=== PATIENT | female | born 1950 | race Caucasian/White ===

== ENCOUNTER → 2017-02-05 | Outpatient (CLI) | payer OTHER | LOC: FIMAGING 14:16 | PROVIDERS: ATTEND Internal Medicine | DX: I48.2 Chronic atrial fibrillation (principal) ==

== ENCOUNTER → 2017-03-07 | Outpatient (CLI) | payer OTHER | LOC: BMCIMAGING 08:12 | PROVIDERS: ATTEND Internal Medicine Endocrinology, Diabetes & Metabolism | DX: E05.90 Thyrotoxicosis, unspecified without thyrotoxic crisis or storm (principal) | CPT/HCPCS: 76536-PO ==

== ENCOUNTER 2017-03-12 01:32 | Emergency (ER) | payer OTHER ==
[2017-03-12 01:43] VITALS: RESP 18
--- NOTE | 2017-03-12 01:44 | EDPHY ---
H & P Stated Complaint: epigastric to back pain and may be in afib HPI/ROS: Chief Complaint: Chest pain HPI: 67-year-old woman with a history of chronic atrial fibrillation has been having episodes of chest pain is for the last week. They are described as a dull pain in her upper abdomen migrating to her chest. Make him on the last for only a few seconds and then go away. Initially they are occurring about every 30 minutes however the last day or 2 they have been coming on every 10 minutes or so. She has not have any associated shortness of breath. No fevers or chills. Also states she has been having some occasional pain in the sides of her chest and breast and going into her back. Her back pain is similar to muscular pain that she gets after lifting and does state that she has been lifting her 30 lb grandson recently. No cough. No nausea or vomiting. She recently had thorough cardiac evaluation including stress test echocardiogram done by her coat fitter. There is a plan for the follow-up with clarifier operator helper in consultation for possible ablation for atrial fibrillation. She has been taking her Eliquis. Pain is not brought on by exertion. She has not had any calf pain or tenderness. It is not pleuritic. It only lasts for a few seconds before goes away. There are no aggravating or alleviating factors. At worst it is a 2 on 10. She is currently without pain. ROS: 10 point Review of Systems is negative except as noted in the HPI. PMH: Atrial fibrillation Social History: No smoking, no alcohol, no recreational drug use Family History: non-contributory Physical Exam: Gen: Awake, Alert, No Distress HEENT: Nose: no rhinorrhea Eyes: PERRLA, EOMI Mouth: Moist mucosa Neck: Supple, no JVD Chest: nontender, lungs clear to auscultation Heart: S1, S2 normal, no murmur Abd: Soft, non-tender, no guarding Back: no CVA tenderness, no midline tenderness Ext: no edema, non-tender Skin: no rash Neuro: CN II-XII intact, Sensation grossly intact, Strength 5/5 in bilateral upper and lower extremities - Personal History Current Tetanus/Diphtheria Vaccine: Unsure Current Tetanus Diphtheria and Acellular Pertussis (TDAP): Unsure Tetanus Vaccine Date: 2006 - Medical/Surgical History Hx Asthma: Yes Hx Chronic Respiratory Disease: No Hx Diabetes: No Hx Cardiac Disease: Yes Hx Renal Disease: No Hx Cirrhosis: No Hx Alcoholism: No Hx HIV/AIDS: No Hx Splenectomy or Spleen Trauma: No Other PMH: A-FIB, CARDIOVERSION X 4, PE, DVT, HYPERLIPIDEMIA, ASTHMA, SEASONAL ALLERGIES, LTK, LUMBAR DISCECTOMY - Social History Smoking Status: Never smoked Constitutional: Initial Vital Signs Temperature (C) 36.4 C 03/12/17 01:37 Heart Rate 85 03/12/17 01:37 Respiratory Rate 18 03/12/17 01:37 Blood Pressure 168/78 H 03/12/17 01:37 O2 Sat (%) 96 03/12/17 01:37 O2 Delivery Mode Room Air O2 (L/minute) 2 Allergies/Adverse Reactions: iodine [Iodine] Allergy (Severe, Verified 10/05/14 13:49) Hives Penicillins Allergy (Severe, Verified 12/27/09 23:36) Rash cephalexin [Cephalexin] Allergy (Intermediate, Verified 02/26/12 14:19) Itching DOGS Allergy (Intermediate, Uncoded 02/13/12 14:07) SNEEZY DAIRY Adverse Reaction (Intermediate, Uncoded 12/29/09 05:40) Abdominal Cramping Home Medications: Medication Instructions Recorded Multivitamins [Multivitamin (*)] 1 each PO DAILY 02/16/12 [place]-3 Fatty Acids [Fish Oil 1000 1,000 mg PO DAILY 02/16/12 mg (*)] Metoprolol Succinate Xr [Toprol Xl 50 mg PO DAILY 09/30/14 50 mg (*)] Eliquis 03/12/17 Medical Decision Making - Diagnostics EKG Interpretation: ECG time 0148, atrial fibrillation with a rate of 90, normal axis, no acute ST changes. Imaging Results: Right upper quadrant ultrasound is negative per Dr. Baker. Imaging: Discussed imaging studies w/ cripple worker Radiologist ED Course/Re-evaluation: 67-year-old woman presenting with episodes of atypical chest pain lasting just a few seconds which has been increasing in frequency for the last week. She is in atrial fibrillation but this is chronic for her. She is of had recent extensive cardiac workup including stress testing and echocardiogram which have been unremarkable. Her ECG does not show any acute ischemic changes at this time. Troponin is undetectable. She is otherwise well-appearing. I do not see evidence of acute coronary syndrome at this time. Plan will be to discharge. She has an appoint with Cardiology this week for further evaluation for atrial fibrillation she will follow up regarding this pain as well. - Data Points Laboratory Results: Laboratory Results 03/12/17 01:50 03/12/17 01:50 03/12/17 03/12/17 03/12/17 01:50 01:50 01:50 WBC 8.85 10^3/uL 10^3/uL (3.80-9.50) RBC 4.66 10^6/uL 10^6/uL (4.18-5.33) Hgb 14.9 g/dL g/dL (12.6-16.3) Hct 44.8 % % (38.0-47.0) MCV 96.1 fL fL (81.5-99.8) MCH 32.0 pg pg (27.9-34.1) MCHC 33.3 g/dL g/dL (32.4-36.7) RDW 13.2 % % (11.5-15.2) Plt Count 282 10^3/uL 10^3/uL (150-400) MPV 9.8 fL fL (8.7-11.7) Neut % (Auto) 53.0 % % (39.3-74.2) Lymph % (Auto) 36.6 % % (15.0-45.0) [place] % (Auto) 8.0 % % (4.5-13.0) Eos % (Auto) 1.1 % % (0.6-7.6) Baso % (Auto) 1.0 % % (0.3-1.7) Nucleat RBC Rel Count 0.0 % % (0.0-0.2) Absolute Neuts (auto) 4.68 10^3/uL 10^3/uL (1.70-6.50) Absolute Lymphs (auto) 3.24 10^3/uL H 10^3/uL (1.00-3.00) Absolute Monos (auto) 0.71 10^3/uL 10^3/uL (0.30-0.80) Absolute Eos (auto) 0.10 10^3/uL 10^3/uL (0.03-0.40) Absolute Basos (auto) 0.09 10^3/uL 10^3/uL (0.02-0.10) Absolute Nucleated RBC 0.00 10^3/uL 10^3/uL (0-0.01) Immature Gran % 0.3 % % (0.0-1.1) Immature Gran # 0.03 10^3/uL 10^3/uL (0.00-0.10) Sodium 143 mEq/L mEq/L (134-144) Potassium 4.6 mEq/L mEq/L (3.5-5.2) Chloride 107 mEq/L mEq/L (97-110) Carbon Dioxide 23 mEq/l mEq/l (22-31) Anion Gap 13 mEq/L mEq/L (8-16) BUN 19 mg/dL mg/dL (7-23) Creatinine 0.9 mg/dL mg/dL (0.6-1.0) Estimated GFR > 60 Glucose 103 mg/dL H mg/dL (70-100) Calcium 9.9 mg/dL mg/dL (8.5-10.4) Total Bilirubin 1.9 mg/dL H mg/dL (0.1-1.4) Conjugated Bilirubin 0.4 mg/dL mg/dL (0.0-0.5) Unconjugated Bilirubin 1.5 mg/dL H mg/dL (0.0-1.1) AST 22 IU/L IU/L (14-46) ALT 28 IU/L IU/L (9-52) Alkaline Phosphatase 112 IU/L IU/L (38-126) Troponin I < 0.012 ng/mL ng/mL (0-0.034) Total Protein 7.4 g/dL g/dL (6.3-8.2) Albumin 4.3 g/dL g/dL (3.5-5.0) Lipase 85.0 IU/L IU/L (23-300) Departure - Departure Disposition: Home, Routine, Self-Care Clinical Impression: Atypical chest pain, Atrial fibrillation Condition: Good Instructions: Chest Pain (ED) Additional Instructions: Follow up with your coat fitter and primary care physician this week. Return to the emergency depart for increasing pain, shortness of breath, fevers , chills, fainting, or any other concerns. Referrals: Chanel Diaz MD [Primary Care Provider] - As per Instructions
--- NOTE | 2017-03-12 01:51 | CPEKG ---
Heart Rate: 90 RR Interval: 667 QRSD Interval: 88 QT Interval: 384 QTC Interval: 470 QRS [place]: 6 T Wave [place]: 18 EKG Severity - ABNORMAL ECG - EKG Impression: ATRIAL FIBRILLATION, V-RATE 70-107 Electronically Signed By: Samir Salvador 13-Mar-2017 02:47:43
[2017-03-12 02:10] LABS: % IMMATURE GRANULYOCYTES 0.3 % (0.0-1.1); ABSOLUTE IMMATURE GRANULOCYTES 0.03 10^3/uL (0.00-0.10); ADD DIFF? NO; ADD MORPH? NO; ADD SCAN? NO; ATYPICAL LYMPHOCYTE FLAG 20 (0-99); FRAGMENT RBC FLAG 0 (0-99); HEMATOCRIT 44.8 % (38.0-47.0); HEMOGLOBIN 14.9 g/dL (12.6-16.3); LEFT SHIFT FLG 0 (0-99); LIPEMIA HEMOLYSIS FLAG 80 (0-99); MEAN CELL HEMOGLOBIN CONCENTR. 33.3 g/dL (32.4-36.7); MEAN CELL VOLUME 96.1 fL (81.5-99.8); MEAN PLATELET VOLUME 9.8 fL (8.7-11.7); PLATELET CLUMPS FLAG 10 (0-99); PLATELET COUNT 282 10^3/uL (150-400); RED BLOOD CELL COUNT 4.66 10^6/uL (4.18-5.33); RED CELL DISTRIBUTION WIDTH 13.2 % (11.5-15.2)
[2017-03-12 02:18] LABS: ANION GAP 13 mEq/L (8-16); CALCIUM 9.9 mg/dL (8.5-10.4); CARBON DIOXIDE 23 mEq/l (22-31); CHLORIDE 107 mEq/L (97-110); CREATININE 0.9 mg/dL (0.6-1.0); GLOMERULAR FILTRATION RATE > 60; GLUCOSE 103 mg/dL (70-100); POTASSIUM 4.6 mEq/L (3.5-5.2); SODIUM 143 mEq/L (134-144)
[2017-03-12 02:30] LABS: TROPONIN I < 0.012 ng/mL (0-0.034)
[2017-03-12 02:50] LABS: ALBUMIN 4.3 g/dL (3.5-5.0); BILIRUBIN,TOTAL 1.9 mg/dL (0.1-1.4); BILIRUBIN-CONJUGATED 0.4 mg/dL (0.0-0.5); BILIRUBIN-UNCONJUGATED 1.5 mg/dL (0.0-1.1); TOTAL PROTEIN 7.4 g/dL (6.3-8.2)
[2017-03-12] MEDS ORDERED: HYDROCOD/APAP 5/325 PREPACK#6 BTL TAKEHOME ONE ×2 (03:43→03:50)
[2017-03-12 03:52] VITALS: BP 142/80; PULSE 68; TEMP 96.8; O2SAT 98
== END 2017-03-12 03:51 | disposition home or self-care (01) ==
DX: I48.91 Unspecified atrial fibrillation (principal); J45.909 Unspecified asthma, uncomplicated

== ENCOUNTER 2017-05-04 07:31 | Day surgery (SDC) | payer OTHER ==
[2017-05-04] MEDS ORDERED: NS 1,000 ML IV ONE (07:37)
[2017-05-04] MEDS ORDERED: ASPIRIN EC 325 MG TAB PO ONE (07:37)
[2017-05-04] MEDS ORDERED: FAMOTIDINE 20 MG/NACL 50 ML IV ONE (07:37)
[2017-05-04] MEDS ORDERED: DIAZEPAM 5 MG TAB PO ONE (07:37)
[2017-05-04] MEDS ORDERED: methylPREDNISolone SOD SUCC 125 MG/2 ML VIAL IVP ONE (07:37)
--- NOTE | 2017-05-04 08:08 | CPEKG ---
Heart Rate: 106 RR Interval: 566 QRSD Interval: 90 QT Interval: 332 QTC Interval: 441 QRS [place]: 1 T Wave [place]: 42 EKG Severity - ABNORMAL ECG - EKG Impression: ATRIAL FIBRILLATION, V-RATE 89-125 Electronically Signed By: Justino Shafer 04-May-2017 16:49:30
[2017-05-04 08:21] LABS: % IMMATURE GRANULYOCYTES 0.5 % (0.0-1.1); ABSOLUTE IMMATURE GRANULOCYTES 0.04 10^3/uL (0.00-0.10); ADD DIFF? NO; ADD MORPH? NO; ADD SCAN? NO; ATYPICAL LYMPHOCYTE FLAG 0 (0-99); FRAGMENT RBC FLAG 0 (0-99); HEMATOCRIT 45.5 % (38.0-47.0); HEMOGLOBIN 15.2 g/dL (12.6-16.3); LEFT SHIFT FLG 0 (0-99); LIPEMIA HEMOLYSIS FLAG 80 (0-99); MEAN CELL HEMOGLOBIN 31.9 pg (27.9-34.1); MEAN CELL HEMOGLOBIN CONCENTR. 33.4 g/dL (32.4-36.7); MEAN CELL VOLUME 95.6 fL (81.5-99.8); MEAN PLATELET VOLUME 9.7 fL (8.7-11.7); PLATELET CLUMPS FLAG 10 (0-99); PLATELET COUNT 256 10^3/uL (150-400); RED BLOOD CELL COUNT 4.76 10^6/uL (4.18-5.33); RED CELL DISTRIBUTION WIDTH 13.3 % (11.5-15.2)
[2017-05-04 08:31] LABS: PROTIME(PATIENT) 13.1 SEC (12.0-15.0)
[2017-05-04 08:47] LABS: ANION GAP 12 mEq/L (8-16); CALCIUM 10.2 mg/dL (8.5-10.4); CARBON DIOXIDE 22 mEq/l (22-31); CHLORIDE 104 mEq/L (97-110); CHOLESTEROL 204 mg/dL (140-220); CHOLESTEROL/HDL RATIO 2.19 RATIO (1.00-4.44); CREATININE 0.9 mg/dL (0.6-1.0); GLOMERULAR FILTRATION RATE > 60; GLUCOSE 167 mg/dL (70-100); HIGH DENSITY LIPOPROTEIN 93 mg/dL (40-85); LOW DENSITY LIPOPROTEIN 93 mg/dL (80-100); MAGNESIUM 1.8 mg/dL (1.6-2.3); NON-HIGH DENSITY LIPOPROTEIN 111 mg/dL (90-129); POTASSIUM 4.8 mEq/L (3.5-5.2); SODIUM 138 mEq/L (134-144); TRIGLYCERIDE 92 mg/dL (35-135); VERY LOW DENSITY LIPOPROTEINS 18 mg/dL (8-25)
[2017-05-04] MEDS ORDERED: LIDOCAINE 1% 300 MG/30 ML SDV ONE (08:47)
[2017-05-04] MEDS ORDERED: fentaNYL 100 MCG/2 ML INJ ONE (08:48)
[2017-05-04] MEDS ORDERED: IOPAMIDOL (ISOVUE-370) 150 ML BTL IV ONE (08:48)
[2017-05-04] MEDS ORDERED: VERAPAMIL 5 MG/2 ML VIAL ONE (08:48)
[2017-05-04] MEDS ORDERED: MIDAZOLAM 2 MG/2 ML VIAL ONE ×2 (08:48→10:00)
[2017-05-04] MEDS ORDERED: HEPARIN 10,000 UNIT/10 ML MDV ONE (08:48)
--- NOTE | 2017-05-04 18:27 | CPIP ---
[f rep st] INVASIVE CARDIAC PROCEDURE PROCEDURE PERFORMED: 1. Selective coronary angiography. 2. Left heart catheterization. 3. Left ventriculogram. 4. TR Band arteriotomy repair, this was a right radial approach. COMPLICATIONS: None. INDICATIONS/APPROPRIATE USE CRITERIA: The patient was found to have a low-grade but positive calciu m score followed by a nuclear stress test which was abnormal indicating ischemia to the anterior wal l versus breast attenuation. PROCEDURE IN DETAIL: After informed consent was obtained, n.p.o. status was confirmed. The region of the right wrist was cleaned, prepped, and draped in sterile fashion. A plethysmography and trace assisted Nitin test was performed documenting dual arterial supply to the right index finger. A 5- [place] sheath was placed with modified Seldinger technique. The patient underwent the previously me ntioned diagnostic procedures with use of JR4 and JR4 and JL3.5 [place] catheters as well as a 5-[facility] pigtail catheter. Standard wire exchange technique was utilized for all catheter exchanges. The right coronary artery is approximately 2.5 mm in size proximally and is nondominant giving rise to an RV branch and acute marginal branch before terminating in the AV groove. The left main coronary lumen is approximately 8 mm in size, and it is very short. The patient almos t has a common ostium arising from the left main of the left circumflex and LAD. The left circumfle x is a dominant and very large vessel approximately 4.25 mm in size proximally giving rise to 2 impo rtant obtuse marginal branches, a posterolateral ventricular branch as well as the posterior descend ing making this a left dominant system. There is CARISSA-3 flow throughout and no evidence of obstruct tariq disease or plaque within the left circumflex. The LAD arises immediately from very near the lef t coronary cusp and was selectively injected separately from the left circumflex with a JL3.5 cathet er. The LAD is diffusely diseased proximally with multiple luminal irregularities consistent with u nderlying atherosclerosis. At the level of the LAD diagonal bifurcation, both vessels are approxima tely 2.5 mm in size with a 50% obstruction in each at the bifurcation. This is a complex lesion. T here was evidence of dye streaming which is consistent with abnormal flow characteristics; however, these lesions when best identified in a magnified CAMBODIAN caudal view, did not appear to reveal evidence of flow-limiting obstruction. A 50% angiographic lesion distal to the LAD bifurcation is also note d and best seen in the more cranial projections. Again, there is CARISSA-3 flow without evidence of di ssection or thrombus of this vessel. The patient underwent left heart catheterization demonstrating elevated left ventricular end-diastolic pressure measured at 21 mmHg. The patient underwent left v entriculogramin the BRYAN projection demonstrating preserved left ventricular systolic function, eject ion fraction 65% without segmental wall motion abnormalities. With pressurized injection, the patie nt developed ectopy, and there was noted significant mitral regurgitation during the pressurized inj ection. This was likely to be catheter induced as the patient has had a recent echocardiogram which did not reveal significant mitral regurgitation. Of note is that when the regurgitation was noted, the left atrium was fairly large in volume which may be consistent with patient's history of persis tent atrial fibrillation. The visualized portion of the thoracic aorta reveals 3 sinuses of Valsalv a which is most consistent with a trileaflet aortic valve. The proximal portion of the ascending th oracic aorta does not reveal any obvious aneurysm or dissection. There was no evidence of aortic st enosis upon pullback across the aortic valve. Incidentally noted during the patient's cardiac catheterization procedure was a calcified nodule wit hin the reason region of the thyroid gland, and on injection with the left ventriculogram, it was no kiley that small blood vessels were growing to this calcified nodule which was slightly to the left of midline. There did appear to be small vessels that were going to this calcified mass in the region of the thyroid gland which also seemed to opacify it which would be consistent with neovascularizat ion to this calcified mass. The patient was noted to have significant hypertension with blood pressures documented to be as high as 200/98, while sedated in the labor relations officer. This, of course, may be related in part to her recent st eroid regimen which was given for her history of iodine allergy. FINAL IMPRESSION: Moderate but nonflow limiting coronary disease confined to the left anterior desc ending and left anterior descending diagonal bifurcation in a complex lesion which did not appear to limit blood flow to the heart muscle angiographically. The patient should be treated for atheroscl erosis to achieve an LDL cholesterol of less than 100 and a non-HDL cholesterol of less than 100 as well. She should adopt a routine moderate cardiovascular exercise schedule once cleared to do so af ter the wrist arteriotomy site has healed completely in 7-10 days. Careful attention to her diet to avoid excess calories as well as saturated fats which are solid at room temperature, trans fats, or simple sugars in her diet may be reasonable. Probably the best diet for patients with coronary dis ease is the so-called Mediterranean diet which is prominent in fruits, vegetables, and plant based s ources of oils such as tree nuts and olive oil. The patient has significant systemic hypertension at rest and with sedation which may indicate that she has intermittent significant hypertension which may be in part situational. I think it would be reasonable to consider placing the patient on an FAM inhibitor or ARB based medical regimen as thos e are thought to improve vascular health. Hyperglycemia was noted on today's fasting sample with a blood sugar above 126 mg/dL at 1:56. The p atient states that she had a recent physical where her blood sugar was not found to be in the range for diabetes. This may, of course, be induced by her recent oral corticosteroid regimen; however, i t is something that should be monitored by her primary care physician. The patient has a calcified nodule at the base of her neck which is most likely in the thyroid. Thi s nodule is irregular in its borders, heavily calcified, and appears to have neovascularization andrews g to it from branch vessels in the thyrocervical trunk. I have discussed these findings with __ who felt that if they had not been biopsied before, they should be. I discussed the findin gs of the angiography with Dr. Friedman at the [facility] who relates that they have been biopsied in 2014. She would like to contact the patient on Sunday and consider repeat biopsy of tho se lesions. The patient is at risk for an acute coronary syndrome given her age, family history, hypertension, d yslipidemia, and hyperglycemia which is easily provoked with oral corticosteroids. If she experienc es chest discomfort, pressure, tightness, nausea, vomiting, or other clinical symptoms of concern es pecially if they occur with exertion or are new onset, she should be considered for emergency evalua tion here at the hospital. The patient understands her discharge instructions which include to limi t her activity, no strenuous activity for the next 7-10 days until her arteriotomy site has healed c ompletely, and I have asked that she call Dr. Friedman's office as well to follow up on this thyroid n odule issue. I think it would be reasonable for her to see her primary care physician as well at [facility], discuss further management and treatment of her dyslipidemia and coronary artery disease. Copy requested to: Dr. Friedman /[id number]/MODL
== END 2017-05-04 17:34 | disposition home or self-care (01) ==
LOC: FCATH 07:31
PROVIDERS: ATTEND Internal Medicine Cardiovascular Disease
PROC: B2111ZZ Fluoroscopy of Multiple Coronary Arteries using Low Osmolar Contrast (ICD-10-PCS; principal; 2017-05-04)
PROC: B2151ZZ Fluoroscopy of Left Heart using Low Osmolar Contrast (ICD-10-PCS; principal; 2017-05-04)
PROC: 4A023N7 Measurement of Cardiac Sampling and Pressure, Left Heart, Percutaneous Approach (ICD-10-PCS; principal; 2017-05-04)
DX: I48.1 Persistent atrial fibrillation (principal); E78.4 Other hyperlipidemia; E05.90 Thyrotoxicosis, unspecified without thyrotoxic crisis or storm; Z86.718 Personal history of other venous thrombosis and embolism; Z82.49 Family history of ischemic heart disease and other diseases of the circulatory system; Z91.041 Radiographic dye allergy status; Z79.01 Long term (current) use of anticoagulants
CPT/HCPCS: J1644; J2250; J3010; Q9967

== ENCOUNTER → 2017-05-24 | Outpatient (CLI) | payer OTHER ==
[~2017-05-24] MED LIST: LIDOCAINE 1% 300 MG/30 ML SDV ONE
== END ==
LOC: FIMAGING 12:07
PROVIDERS: ATTEND Internal Medicine Endocrinology, Diabetes & Metabolism
PROC: 0G9K3ZZ Drainage of Thyroid Gland, Percutaneous Approach (ICD-10-PCS; principal; 2017-05-24)
DX: E04.2 Nontoxic multinodular goiter (principal)

== ENCOUNTER → 2017-06-04 | Outpatient (CLI) | payer OTHER | LOC: FIMAGING 10:01 | PROVIDERS: ATTEND Internal Medicine | DX: Z12.31 Encounter for screening mammogram for malignant neoplasm of breast (principal); Z13.820 Encounter for screening for osteoporosis; M85.80 Other specified disorders of bone density and structure, unspecified site; E07.9 Disorder of thyroid, unspecified; Z87.81 Personal history of (healed) traumatic fracture; Z96.653 Presence of artificial knee joint, bilateral; Z79.899 Other long term (current) drug therapy | CPT/HCPCS: G0202 ==

== ENCOUNTER 2017-06-25 08:59 | Inpatient (IN) | payer OTHER ==
[2017-06-25] MEDS ORDERED: ACETAMINOPHEN 325 MG TAB PO PRN (10:30)
[2017-06-25] MEDS ORDERED: ONDANSETRON DISINTEGRATING 4 MG TAB PO PRN (10:30)
--- NOTE | 2017-06-25 10:38 | PDCARPN ---
Cardiology Progress Note Chief Complaint: Atrial fibrillation Assessment/Plan: Assessment/Plan: Johana is a 67 y/o F with a history of hyperthyroidism and persistent atrial fibrillation. She failed prior CV but was hyperthyroid at the time. She was started on Methimazole greater than 3 months ago and presents today for Sotalol loading and possible CV. She will begin Sotalol 120mg BID if her CrCl is >60. She will continue Eliquis 5mg BID with a CHADS VASc score of 2. If she remains in a.fib she will have a CV sun. 06/25/17 10:34 Subjective: Pt can feel that she is in atrial fibrillation but has no specific complaints. Objective: Intake/Output (24 Hrs) 06/24/17 06/25/17 06/26/17 05:59 05:59 05:59 Other: Weight 103.2 kg - Physical Exam Constitutional: WDWN Cardiovascular: no murmurs, irregularly irregular Peripheral Pulses: 2+: dorsalis-pedis (R), dorsalis-pedis (L) Respiratory: clear to auscultate bilat Skin: no edema Neurologic: AAOx3 ICD10 Worksheet Patient Problems: Problems Problem Status Onset Arthritis of knee, right Acute
[2017-06-25 11:21] LABS: % IMMATURE GRANULYOCYTES 0.3 % (0.0-1.1); ABSOLUTE IMMATURE GRANULOCYTES 0.02 10^3/uL (0.00-0.10); ADD DIFF? NO; ADD MORPH? NO; ADD SCAN? NO; ATYPICAL LYMPHOCYTE FLAG 0 (0-99); FRAGMENT RBC FLAG 0 (0-99); HEMATOCRIT 42.5 % (38.0-47.0); HEMOGLOBIN 14.1 g/dL (12.6-16.3); LEFT SHIFT FLG 0 (0-99); LIPEMIA HEMOLYSIS FLAG 80 (0-99); MEAN CELL HEMOGLOBIN 32.4 pg (27.9-34.1); MEAN CELL HEMOGLOBIN CONCENTR. 33.2 g/dL (32.4-36.7); MEAN CELL VOLUME 97.7 fL (81.5-99.8); MEAN PLATELET VOLUME 10.4 fL (8.7-11.7); PLATELET CLUMPS FLAG 20 (0-99); PLATELET COUNT 230 10^3/uL (150-400); RED BLOOD CELL COUNT 4.35 10^6/uL (4.18-5.33); RED CELL DISTRIBUTION WIDTH 13.2 % (11.5-15.2)
[2017-06-25 11:32] LABS: ANION GAP 12 mEq/L (8-16); CALCIUM 9.5 mg/dL (8.5-10.4); CARBON DIOXIDE 21 mEq/l (22-31); CHLORIDE 108 mEq/L (97-110); CREATININE 0.8 mg/dL (0.6-1.0); GLOMERULAR FILTRATION RATE > 60; GLUCOSE 101 mg/dL (70-100); MAGNESIUM 1.8 mg/dL (1.6-2.3); POTASSIUM 5.1 mEq/L (3.5-5.2); SODIUM 141 mEq/L (134-144)
--- NOTE | 2017-06-25 11:32 | CPEKG ---
Heart Rate: 81 RR Interval: 741 QRSD Interval: 90 QT Interval: 372 QTC Interval: 432 QRS [place]: 7 T Wave [place]: 10 EKG Severity - ABNORMAL ECG - EKG Impression: ATRIAL FIBRILLATION, V-RATE 66-94 EKG Impression: PROBABLE POSTERIOR INFARCT Electronically Signed By: Navarro Brown 25-Jun-2017 16:51:26
[2017-06-25 11:33] LABS: APTT 32.6 SEC (23.0-38.0); INR 1.28 (0.83-1.16)
[2017-06-25] MEDS: SOTALOL HCL 80 MG TAB PO SCH ×2 (11:55→21:52)
--- NOTE | 2017-06-25 14:18 | CPEKG ---
Heart Rate: 78 RR Interval: 769 QRSD Interval: 88 QT Interval: 384 QTC Interval: 438 QRS [place]: 12 T Wave [place]: 21 EKG Severity - ABNORMAL ECG - EKG Impression: ATRIAL FIBRILLATION, V-RATE 60-90 Electronically Signed By: Navarro Brown 25-Jun-2017 16:51:19
[2017-06-25] MEDS: APIXABAN 5 MG TAB PO SCH (20:34)
[2017-06-25] MEDS: METHIMAZOLE 5 MG TAB PO SCH (20:35)
[2017-06-26 05:27] LABS: INR 1.24 (0.83-1.16); PROTIME(PATIENT) 15.6 SEC (12.0-15.0)
[2017-06-26 05:35] LABS: ANION GAP 9 mEq/L (8-16); CALCIUM 8.7 mg/dL (8.5-10.4); CARBON DIOXIDE 24 mEq/l (22-31); CHLORIDE 105 mEq/L (97-110); CREATININE 0.9 mg/dL (0.6-1.0); GLOMERULAR FILTRATION RATE > 60; GLUCOSE 90 mg/dL (70-100); MAGNESIUM 1.7 mg/dL (1.6-2.3); POTASSIUM 4.3 mEq/L (3.5-5.2); SODIUM 138 mEq/L (134-144)
--- NOTE | 2017-06-26 08:52 | CPEKG ---
Heart Rate: 79 RR Interval: 759 QRSD Interval: 84 QT Interval: 388 QTC Interval: 445 QRS [place]: 30 T Wave [place]: 47 EKG Severity - ABNORMAL ECG - EKG Impression: ATRIAL FIBRILLATION Electronically Signed By: Navarro Borwn 26-Jun-2017 11:49:52
[2017-06-26] MEDS: METHIMAZOLE 5 MG TAB PO SCH ×2 (08:53→20:28)
[2017-06-26] MEDS: SOTALOL HCL 80 MG TAB PO SCH ×2 (08:54→20:28)
[2017-06-26] MEDS: ROSUVASTATIN CALCIUM 20 MG TAB PO SCH (08:54)
[2017-06-26] MEDS: APIXABAN 5 MG TAB PO SCH ×2 (08:55→20:28)
--- NOTE | 2017-06-26 10:50 | CPEKG ---
Heart Rate: 76 RR Interval: 789 QRSD Interval: 82 QT Interval: 396 QTC Interval: 446 QRS [place]: 10 T Wave [place]: 41 EKG Severity - ABNORMAL ECG - EKG Impression: ATRIAL FIBRILLATION, V-RATE 57-90 Electronically Signed By: Navarro Brown 26-Jun-2017 11:49:38
--- NOTE | 2017-06-26 13:23 | PDCARPN ---
Cardiology Progress Note Chief Complaint: atrial fibrillation Assessment/Plan: Assessment/Plan: Johana is a 67 y/o F with a history of hyperthyroidism, HTN, and persistent atrial fibrillation. She failed prior CV but was hyperthyroid at the time. She was started on Methimazole greater than 3 months ago and presents for Sotalol loading and possible CV. 1. persistent atrial fibrillation- tolerating Sotalol 120mg BID. QTc wnl. Plan for CV tomorrow morning if she remains in atrial fibrillation. 2. HTN- well controlled without additional agent. 3. Hyperthyroidism- with normal free T4 and elevated TSH 06/26/17 13:14 Subjective: She denies any CP, SOB, lightheadedness, or dizziness. Objective: Vital Signs (8 Hrs) Temp Pulse Resp BP Pulse Ox 06/26/17 11:40 36.7 C 76 11 L 104/76 95 06/26/17 07:39 36.7 C 77 11 L 110/55 L 93 Intake/Output (24 Hrs) 06/25/17 06/26/17 06/27/17 05:59 05:59 05:59 Intake Total 760 Balance 760 Intake: Oral (ml) 760 Other: Weight 103.2 kg Number of Voids Toilet 2 Result Diagrams: 06/25/17 10:08 06/26/17 04:51 Telemetry: a.fib rate controlled. - Physical Exam Constitutional: WDWN Cardiovascular: no murmurs, no rubs, no gallops, irregularly irregular Respiratory: clear to auscultate bilat Skin: no edema Neurologic: AAOx3 ICD10 Worksheet Patient Problems: Problems Problem Status Onset Arthritis of knee, right Acute
--- NOTE | 2017-06-26 22:33 | CPEKG ---
Heart Rate: 81 RR Interval: 741 QRSD Interval: 86 QT Interval: 380 QTC Interval: 441 QRS [place]: 19 T Wave [place]: 39 EKG Severity - ABNORMAL ECG - EKG Impression: ATRIAL FIBRILLATION, V-RATE 62-95 EKG Impression: VENTRICULAR PREMATURE COMPLEX Electronically Signed By: Navarro Brown 27-Jun-2017 06:14:01
[2017-06-27 06:41] LABS: INR 1.28 (0.83-1.16)
[2017-06-27 06:42] LABS: APTT 32.6 SEC (23.0-38.0)
[2017-06-27 06:45] LABS: ANION GAP 9 mEq/L (8-16); CALCIUM 8.8 mg/dL (8.5-10.4); CARBON DIOXIDE 24 mEq/l (22-31); CHLORIDE 105 mEq/L (97-110); CREATININE 0.8 mg/dL (0.6-1.0); GLOMERULAR FILTRATION RATE > 60; GLUCOSE 91 mg/dL (70-100); MAGNESIUM 1.8 mg/dL (1.6-2.3); POTASSIUM 4.4 mEq/L (3.5-5.2); SODIUM 138 mEq/L (134-144)
[2017-06-27] MEDS: APIXABAN 5 MG TAB PO SCH (08:54)
[2017-06-27] MEDS: ROSUVASTATIN CALCIUM 20 MG TAB PO SCH (08:54)
[2017-06-27] MEDS: METHIMAZOLE 5 MG TAB PO SCH (08:56)
[2017-06-27] MEDS: SOTALOL HCL 80 MG TAB PO SCH (09:42)
[2017-06-27] MEDS ORDERED: ONDANSETRON 4 MG/2 ML VIAL ONE (10:29)
[2017-06-27] MEDS ORDERED: PROPOFOL 200 MG/20 ML VIAL ONE (10:29)
[2017-06-27] MEDS ORDERED: MIDAZOLAM 2 MG/2 ML VIAL ONE (10:30)
--- NOTE | 2017-06-27 10:56 | CPEKG ---
Heart Rate: 59 RR Interval: 1017 P-R Interval: 196 QRSD Interval: 90 QT Interval: 448 QTC Interval: 444 P [place]: 53 QRS [place]: 6 T Wave [place]: 23 EKG Severity - OTHERWISE NORMAL ECG - EKG Impression: SINUS RHYTHM EKG Impression: VENTRICULAR PREMATURE COMPLEX Electronically Signed By: Navarro Brown 27-Jun-2017 11:47:27
[2017-06-27 12:02] VITALS: BP 127/71; PULSE 59; RESP 16; TEMP 98.2; O2SAT 93
--- NOTE | 2017-06-27 12:36 | CPR ---
[f rep st] NONINVASIVE CARDIAC PROCEDURE REPORT PROCEDURE: Cardioversion. INDICATION: Atrial fibrillation, symptomatic with fatigue, anticoagulation with Eliquis. ANTIARRHYTHMIC AGENT: Sotalol. DESCRIPTION OF PROCEDURE: Informed consent was obtained. Anesthesiologist administered IV general anesthesia in the CVC. LAURA was performed. Of note, this shows moderate mitral regurgitation and mi [id number] tricuspid regurgitation. Left ventricular ejection fraction is normal. There is mod erate left atrial enlargement. There is no left atrial, left atrial appendage, or left ventricular thrombus. A single 200 joule biphasic synchronized direct current shock was administered, which converted her to normal sinus rhythm. /[id number]/MODL
--- NOTE | 2017-06-27 13:21 | GDS ---
[f rep st] DISCHARGE SUMMARY PRIMARY PHOTOENGRAVER APPRENTICE: Rodolfo Aguayo MD. The patient is also under the care of Dr. Navarro Brown. DISCHARGE DIAGNOSES: 1. Persistent atrial fibrillation status post sotalol loading as well as transesophageal echocardiogram cardioversion, currently in normal sinus rhythm. 2. Hyperthyroidism. 3. Coronary artery disease on the basis of a positive calcium score. 4. Hyperlipidemia. 5. Moderate mitral regurgitation. HOSPITAL COURSE: For detailed H and P, please see prior dictation. Briefly, the patient is a 67-year-old female with a history of persistent atrial fibrillation. She was found to have hyperthyroidism. She was started on methimazole and 3 months later, was scheduled for sotalol admission. She was admitted to the hospital on 06/25/2017 and started on sotalol 120 mg b.i.d. She tolerated the dose without any associated symptoms, and her QTc with remained within normal limits. After 5 doses of sotalol, she had a LAURA cardioversion by Dr. Navarro Brown. She did convert to normal sinus rhythm. At the time of discharge, she had remained in normal sinus rhythm. Her LAURA did show moderate mitral regurgitation with normal LV function. She was hypertensive on admission to the hospital. Her metoprolol had been held secondary to the initiation of sotalol. She did not want to begin a different antihypertensive medication and therefore, was just monitored. Her blood pressure was fairly well controlled, typically running 130/80 to 90. PHYSICAL EXAMINATION: VITAL SIGNS: Blood pressure 127/71, heart rate 59, oxygen saturation 93% on room air. Afebrile. LABORATORY: BMP within normal limits. TSH 6.83. Free T4 of 0.66. DISCHARGE MEDICATIONS: Sotalol 120 mg b.i.d., fish oil daily, methimazole 5 mg at bedtime and 10 mg in the morning, Crestor 20 mg daily, Eliquis 5 mg b.i.d., herbal supplement daily, vitamin D3 at 5000 units daily. PLAN: The patient is currently stable and ready for discharge home. She is scheduled to follow up with an echo on 07/25 at 10:30 for mitral regurgitation. She will then follow up with Dr. Brown on 08/01 at 2:15. /[id number]/MODL MTDD
[2017-06-27] MEDS ORDERED: ETOMIDATE 20 MG/10 ML VIAL IVP ONE (15:41)
[2017-06-27] MEDS ORDERED: NS 500 ML IV ONE (15:41)
[2017-06-27] MEDS ORDERED: BENZOCAINE UNIT DOSE SPRAY HURRICAINE MM ONE (15:41)
[2017-06-27] MEDS ORDERED: PROPOFOL 200 MG/20 ML VIAL IVP ONE (15:41)
[2017-06-27] MEDS ORDERED: fentaNYL 100 MCG/2 ML INJ IVP ONE (15:41)
[2017-06-27] MEDS ORDERED: MIDAZOLAM 2 MG/2 ML VIAL IVP ONE (15:41)
== END 2017-06-27 14:26 | disposition home or self-care (01) | DRG 310 ==
LOC: F2W 08:59
PROVIDERS: ADMIT Internal Medicine Cardiovascular Disease; ATTEND Internal Medicine Cardiovascular Disease
PROC: 5A2204Z Restoration of Cardiac Rhythm, Single (ICD-10-PCS; principal; 2017-06-27)
DX: I48.1 Persistent atrial fibrillation (principal); E03.9 Hypothyroidism, unspecified; I25.10 Atherosclerotic heart disease of native coronary artery without angina pectoris; E78.5 Hyperlipidemia, unspecified; I34.0 Nonrheumatic mitral (valve) insufficiency; E66.9 Obesity, unspecified
CPT/HCPCS: J2250; J2405; J2704

== ENCOUNTER → 2019-03-05 | Outpatient (CLI) | payer OTHER, MEDICARE | LOC: BMCIMAGING 14:00 | PROVIDERS: ATTEND Internal Medicine | DX: J45.909 Unspecified asthma, uncomplicated (principal) ==

== ENCOUNTER 2019-04-11 13:11 | Day surgery (SDC) | payer OTHER, MEDICARE ==
[2019-04-11] MEDS ORDERED: fentaNYL 100 MCG/2 ML INJ IVP ONE (13:16)
[2019-04-11] MEDS ORDERED: NS 500 ML IV ONE (13:16)
[2019-04-11] MEDS ORDERED: ATROPINE SULFATE 1 MG/10 ML SYR IVP ONE (13:16)
[2019-04-11] MEDS ORDERED: MIDAZOLAM 2 MG/2 ML VIAL IVP ONE (13:16)
[2019-04-11 14:04] LABS: INR 1.26 (0.83-1.16); PROTIME(PATIENT) 15.3 SEC (12.0-15.0)
[2019-04-11] MEDS ORDERED: PROPOFOL 200 MG/20 ML VIAL ONE (14:30)
[2019-04-11] MEDS ORDERED: NS 500 ML IV PRN (14:32)
[2019-04-11] MEDS ORDERED: NALOXONE HCL 0.4 MG/ML INJ IVP PRN (14:32)
[2019-04-11] MEDS ORDERED: ONDANSETRON 4 MG/2 ML VIAL IVP PRN (14:32)
[2019-04-11] MEDS ORDERED: fentaNYL 100 MCG/2 ML INJ IVP PRN (14:32)
--- NOTE | 2019-04-11 14:32 | PDANEPAE ---
ANE Past Medical History - Cardiovascular History Hx Hypertension: Yes Hx Arrhythmias: Yes Hx Coronary Artery / Peripheral Vascular Disease: No Hx CHF / Valvular Disease: No Cardiovascular History Comment: A FIB- ABLATION SUCCESSFUL. NO CP - Pulmonary History Hx COPD: No Hx Asthma/Reactive Airway Disease: No Hx Recent Upper Respiratory Infection: No Hx Oxygen in Use at Home: No Hx Sleep Apnea: No Pulmonary History Comment: PE 7 Y AGO- [place] W ANTICOAGS. NO SOB W STAIRS. NEG SHANTEL TESTING, NEG TRIGGERS - Neurologic History Hx Cerebrovascular Accident: No Hx Seizures: No Hx Dementia: No - Endocrine History Hx Diabetes: No Endocrine History Comment: LOW TSH LEVEL, NO TX. THYROID NODULES- WILL GET BX FIRST OF NEXT YEAR - Renal History Hx Renal Disorders: No - Liver History Hx Hepatic Disorders: No - Neurological & Psychiatric Hx Hx Neurological and Psychiatric Disorders: No - Cancer History Hx Cancer: No - Congenital Disorder History Hx Congenital Disorders: No - GI History Hx Gastrointestinal Disorders: No Gastrointestinal History Comment: NL COLONOSCOPY - Other Health History Other Health History: VARICOSE VEINS. HX PE 7 Y AGO- TX ANTICOAGS. HX R LEG DVT- TX ANTICOAGS. OA - Chronic Pain History Chronic Pain: No (R KNEE) - Surgical History Prior Surgeries: CARDIOVERSION X 3. L KNEE REPLACEMENT. R ANKLE FUSION. DENTAL IMPLANTS. TONSILS '73. CYSTOCELE/URETHRACELE '78. L4-5 DISCECTOMY ANE Review of Systems Review of Systems: ANE Patient History - Allergies Allergies/Adverse Reactions: iodine [Iodine] Allergy (Severe, Verified 10/05/14 13:49) Hives Penicillins Allergy (Severe, Verified 12/27/09 23:36) Rash cephalexin [Cephalexin] Allergy (Intermediate, Verified 02/26/12 14:19) Itching DOGS Allergy (Intermediate, Uncoded 02/13/12 14:07) SNEEZY DAIRY Adverse Reaction (Intermediate, Uncoded 12/29/09 05:40) Abdominal Cramping - Home Medications Home medications: home medication list seen and reviewed Home Medications: [place]-3 Fatty Acids [Fish Oil 1000 mg (*)] 1,000 mg PO DAILY 02/16/12 [Last Taken 04/09/19 08:00] Apixaban [Eliquis] 5 mg PO BID 05/04/17 [Last Taken 04/11/19 08:00] Methimazole [Tapazole 5MG (*)] 5 mg PO DAILY 05/04/17 [Last Taken 04/11/19 08:00 ] Rosuvastatin Calcium [Crestor 20mg (*)] 20 mg PO DAILY 05/04/17 [Last Taken 08:00] Cholecalciferol Vit D3 [Vitamin D3 (*)] 5,000 units PO DAILY 06/25/17 [Last Taken 04/11/19 08:00] Herbals/Supplements -Info Only 1 ea PO DAILY 06/25/17 [Last Taken 04/11/19 08:00 ] - NPO status NPO Status: no food or drink >8 hours - Anes Hx Anes Hx: no prior problems - Smoking Hx Smoking Status: Never smoked - Family Anes Hx Family Hx Anesthesia Complications: NONE ANE Labs/Vital Signs - Labs Result Diagrams: 04/11/19 13:40 - Vital Signs Height: 178 cm Weight: 127.5 kg ANE Physical Exam - Airway Neck exam: FROM Mallampati Score: Class 3 Mouth exam: normal dental/mouth exam - Pulmonary Pulmonary: no respiratory distress, no rales or rhonchi, clear to auscultation - Cardiovascular Cardiovascular: irregularly irregular - ASA Status ASA Status: III ANE Anesthesia Plan Anesthesia Plan: GA with mask
--- NOTE | 2019-04-11 14:37 | PDHPUP ---
History & Physical Update H&P update statement: This history and physical update is based on an assessment of the patient which was completed after admission or registration (within 24 hours), but prior to the surgery/procedure. H&P update: H&P reviewed & patient examined, no change in patient's condition since H&P completed
--- NOTE | 2019-04-11 14:46 | PDCARD ---
Cardioversion Procedure Procedure: electrical cardioversion Indications: atrial fibrillation Consent: signed and in chart Anticoagulation: eliquis Procedural Details: Pads were placed in anterior-posterior position. Synchronized cardioversion attempt #1: [id number] Results: normal sinus rhythm Conclusions: successful cardioversion (1. no med changes f/u with dr castelan as scheduled) Patient Problems: Problems Problem Status Onset Arthritis of knee, right Acute
--- NOTE | 2019-04-11 14:48 | POSTANESTH ---
Post Anesthetic Evaluation Cardiovascular Status: Normal, Stable Respiratory Status: Normal, Stable, Similar to Pre-op Cond. Level of Consciousness/Mental Status: Can Participate in Eval, Alert and Oriented Pain Control: Adequate, Prn Tx Ordered Nausea/Vomiting Control: Adequate, Prn Tx Ordered Complications Possibly Related to Anesthesia: None Noted
--- NOTE | 2019-04-18 10:56 | CPEKG ---
Test Reason : OPEN Blood Pressure : / mmHG Vent. Rate : 068 BPM Atrial Rate : 144 BPM P-R Int : 169 ms QRS Dur : 091 ms QT Int : 409 ms P-R-T Axes : 000 032 036 degrees QTc Int : 436 ms Atrial fibrillation Confirmed by Niels Horowitz ([id number]) on 04/18/2019 10:55:45 AM Referred By: RAY RICHMOND Confirmed By:Niels Horowitz
--- NOTE | 2019-04-18 11:00 | CPEKG ---
Test Reason : OPEN Blood Pressure : / mmHG Vent. Rate : 059 BPM Atrial Rate : 059 BPM P-R Int : 194 ms QRS Dur : 095 ms QT Int : 493 ms P-R-T Axes : 050 011 020 degrees QTc Int : 489 ms Sinus rhythm Borderline prolonged QT interval Confirmed by Niels Horowitz ([id number]) on 04/18/2019 10:59:43 AM Referred By: RAY RICHMOND Confirmed By:Niels Horowitz
== END 2019-04-11 16:10 | disposition home or self-care (01) ==
LOC: FCATH 13:11
PROVIDERS: ATTEND Internal Medicine Cardiovascular Disease
PROC: 5A2204Z Restoration of Cardiac Rhythm, Single (ICD-10-PCS; principal; 2019-04-11)
DX: I48.0 Paroxysmal atrial fibrillation (principal); R06.09 Other forms of dyspnea; R07.89 Other chest pain; Z79.01 Long term (current) use of anticoagulants; Z86.711 Personal history of pulmonary embolism; Z86.718 Personal history of other venous thrombosis and embolism; I10 Essential (primary) hypertension; E78.5 Hyperlipidemia, unspecified; Z96.652 Presence of left artificial knee joint; Z98.1 Arthrodesis status
CPT/HCPCS: J2704